=== PATIENT | male | born 1985 | race Caucasian/White ===

== ENCOUNTER 2019-01-22 13:54 | Emergency (ER) | payer MEDICAID ==
[~2019-01-22] VITALS: Ht 157.5 cm; Wt 61.1 kg
[2019-01-22 13:58] VITALS: BP 117/73
--- NOTE | 2019-01-22 14:16 | NUR ---
THIS IS A 33 YEAR OLD MALE WHO STATES, HE HAS BIPOLAR, VISITING AND GOING TO [facility] AND NEEDS ASSISTANCE WITH MEDICATIONS. "I AM GOING TO LOSE IT, I NEED A PLACE TO STAY". PT GIRLFRIEND IN LOBBY IN MOTORIZED W/C, DOG AND 2 SUITCASES. EXPLAINED TO PT AND GIRLFRIEND THAT NO VISITORS OR DOGS IN OUR ED IS ALLOWED WHEN WE ARE "HOLDING" PATIENT THAT OUR SI. GIRLFRIEND CRYING AND STATES, "WERE DO I GO". EXPLAINED THAT SONIA HAS A GROUP HOME. GIRLFRIEND INSIST ON TALKING WITH BOYFRIEND. EXPLAINED THAT THIS RN WILL ALLOW FOR SHORT PERIOD. ROOM SECURED. OBTAINED URINE, BELONGINGS IN SAFEKEEPING
[2019-01-22 14:46] LABS: AMPHETAMINE SCREEN, URINE Negative (Negative); BARBITURATE SCREEN, URINE Negative (Negative); BENZODIAZEPINE SCREEN, URINE Negative (Negative); CANNABINOID SCREEN, URINE Positive (Negative); COCAINE SCREEN, URINE Negative (Negative); METHADONE SCREEN, URINE Negative (Negative); OPIATE SCREEN, URINE Negative (Negative)
--- NOTE | 2019-01-22 15:17 | NUR ---
PT BELONGINGS RETURNED, DC W ALL INSTRUCTIONS. AMBULATED STEADILY TO DC AREA.
== END 2019-01-22 15:44 | disposition home or self-care (01) ==
LOC: ED 14:33
DX: F20.0 Paranoid schizophrenia (principal)
CPT/HCPCS: 80307; 99284